=== PATIENT | male | born 1970 | race Caucasian/White ===

== ENCOUNTER 2021-08-11 10:39 | Emergency (ER) | payer SELFPAY ==
[2021-08-11 10:51] VITALS: BP 134/96; PULSE 82; RESP 18; TEMP 36.6; O2SAT 97; BMI 50.1
--- NOTE | 2021-08-11 11:09 | CT_ITS ---
WS: [id number] CT ABDOMEN AND PELVIS WITH CONTRAST HISTORY: bowel obstruction TECHNIQUE: Imaging performed of the abdomen and pelvis with IV contrast. Single phase imaging of the abdomen. Coronal and sagittal reformats are submitted. All CT scans at [facility] use at [address] one of these dose optimization techniques: automated exposure control; mA and/or kV adjustment per patient size (includes targeted exams where dose is matched to clinical indication); or iterative re construction. IV CONTRAST: Omnipaque 350; 95 mL IV. Oral contrast: No DLP: 2160.09 mGy.cm COMPARISON: None available. Lower thorax: Lung bases are clear. Heart is normal size. Small hiatal hernia. Liver/biliary system: Normal size with no intrahepatic dilatation. Gallbladder: Normal. No gallstones or wall thickening. No pericholecystic fluid. Pancreas: Normal size pancreas and pancreatic duct. No adjacent inflammation. Spleen: Granuloma. 10 mm cyst in the inferior spleen. Adrenal glands: Normal. Right kidney: Normal. Left kidney: Normal. Aorta: Normal. Lymphadenopathy: None. Free fluid: Small amount of fluid in the RIGHT lower quadrant along the paracolic gutter. GI tract: There is a long segment involvement of the distal small bowel and proximal colon with circu mferential wall thickening measuring up to 2.0 cm Marked narrowing of the lumen. There is a moderate amount of pericolonic inflammation. The appendix i s identified and does contain air. No free air is identified. No additional segments of colonic wall thickening. Abdominal wall: Unremarkable abdominal wall. No hernia. Pelvis: No free fluid or adenopathy within the pelvis. Bones: Unremarkable. CT/CT abdomen pelvis w con* [id number] IMPRESSION: 1. Long segment stricture and circumferential mucosal thickening involving the distal small bowel and the proximal colon. Contiguous involvement severe mucos al thickening. Moderate narrowing of the lumen. Suspect acute inflammatory rito l disease. 2. The appendix is identified and does contain air. 3. Moderate amount of pericolonic fat stranding in the RIGHT lower quadrant. N o perforation at this time.
--- NOTE | 2021-08-11 11:10 | ED_ITS ---
HPI - Abdominal Pain General: Chief Complaint: Abdominal Pain Stated Complaint: Constipation for 2 weeks Time Seen by Provider: 08/11/21 11:05 History of Present Illness: HPI narrative: 50-year-old male presents due to diffuse abdominal pain. States he has been constipated for 2 weeks. States that last small bowel movement was 4 days ago. Denies any abdominal surgeries. Describes crampy diffuse abdominal pain does not radiate. Denies nausea vomiting or diarrhea. Denies blood in stool prior to constipation. Denies any fevers or chills. Denies dysuria. Review of Systems Narrative: - CONSTITUTIONAL: Denies weight loss, fever and chills. - HEENT: Denies changes in vision and hearing. - RESPIRATORY: Denies SOB and cough. - CV: Denies palpitations and CP. - GI: As above - : Denies dysuria and urinary frequency. - MSK: Denies myalgia and joint pain. - SKIN: Denies rash and pruritus. - NEUROLOGICAL: Denies headache, weakness, numbness and syncope. - PSYCHIATRIC: Denies suicidal ideation Physical Exam Narrative: EXAM NARRATIVE: - GENERAL: Alert and oriented x 3. No acute distress. Well-nourished. - EYES: EOMI. Anicteric. - HENT: Atraumatic, no C-spine tenderness. Moist mucous membranes. No scleral icterus. No cervical lymphadenopathy. - LUNGS: Clear to auscultation bilaterally. No accessory muscle use. Equal lung sounds bilaterally. No respiratory distress. - CARDIOVASCULAR: Regular rate and rhythm. No murmur. No JVD. - ABDOMEN: Soft, mild diffuse tenderness, non-distended. Negative CVA tenderness bilaterally, no rebound or guarding, negative Dolan sign. No palpable masses. - EXTREMITIES: No edema. Non-tender. - SKIN: No rashes or lesions. Warm. - NEUROLOGIC: No meningismus or focal neurological deficits. CN II-XII grossly intact. - PSYCHIATRIC: Cooperative. Appropriate mood and affect. Course Vital Signs: Vital signs: Vital Signs Temperature 97.9 F 08/11/21 10:51 Pulse Rate 62 08/11/21 14:06 Respiratory Rate 16 08/11/21 14:06 Blood Pressure 167/92 08/11/21 14:06 Pulse Oximetry 96 08/11/21 14:06 MDM - Abdominal Pain MDM Narrative: Medical decision making narrative: 50-year-old male presents with constipation and abdominal pain. She is hemodynamically stable afebrile nontoxic-appearing. CT scan is concerning for inflammatory bowel disease. No signs of obstruction. Discussed with GI, Dr. Johnson, who at this time does not recommend hospitalization. Recommend stool softeners and Cipro Flagyl and outpatient follow-up. Referral provided. Otherwise lab work is unremarkable. At this time I believe patient would be safe for discharge and outpatient follow-up. Return precautions provided. Plan was reviewed with the patient who expressed understanding. Questions answered. Patient will follow up with GI and PCP. Patient discharged in stable condition. Lab Data: Labs: Lab Results 08/11/21 08/11/21 08/11/21 11:30 11:30 11:30 WBC 7.0 10^3/uL 10^3/ uL (4.0-10.0) RBC 4.90 10^6/uL 10^6 /uL (4.1-5.3) Hgb 15.6 g/dL g/dL (11.7-16.6) Hct 46.0 % % (42.0-52.0) MCV 93.9 fl fl (80-94) MCH 31.8 pg pg (28.0-34.0) MCHC 33.9 g/dL g/dL (30.0-36.0) RDW 13.7 % % (12.1-15.1) Plt Count 214 10^3/cmm 10^3 /cmm (130-400) MPV 9.7 fL fL (7.4-10.4) Neut % (Auto) 72.6 % % Lymph % (Auto) 16.8 % % Schleicher % (Auto) 6.4 % % Eos % (Auto) 3.3 % % Baso % (Auto) 0.6 % % Neut # (Auto) 5.12 10^3/uL 10^3 /uL (1.8-7.7) Lymph # (Auto) 1.2 10^3/uL 10^3/ uL (0.8-4.8) Schleicher # (Auto) 0.5 10^3/uL 10^3/ uL (0.2-0.9) Eos # (Auto) 0.2 10^3/uL 10^3/ uL (0.0-0.8) Baso # (Auto) 0.0 10^3/uL 10^3/ uL (0.0-0.1) Nucleated RBC % (a uto) 0 % % Nucleated RBCs # 0.0 /100WBC /100W BC Sodium 139 mmol/L mmol/L (136-145) Potassium 4.2 mmol/L mmol/L (3.5-5.1) Chloride 103 mmol/L mmol/L (98-107) Carbon Dioxide 21 mmol/L L mmol/ L (22-29) Anion Gap 19.2 H (5-19) BUN 7 mg/dL mg/dL (6-20) Creatinine 0.7 mg/dL mg/dL (0.7-1.2) GFR Calculation 119.4 mL/min mL/m in (90-130) Glucose 95 mg/dL mg/dL (65-115) Calculated Osmolal ity 286 mOsm/kg mOsm/ kg (285-295) Lactate 0.7 mmol/L mmol/L (0.5-2.2) Calcium 8.6 mg/dL mg/dL (8.5-10.5) Total Bilirubin 0.3 mg/dL mg/dL (0.15-1.2) AST 10 U/L U/L (0-40) ALT 15 U/L U/L (0-41) Alkaline Phosphata se 72 IU/L IU/L (40-130) Total Protein 5.8 g/dL L g/dL (6.6-8.7) Albumin 3.9 g/dL g/dL (3.5-5.2) Globulin 1.9 g/dL g/dL (1.3-4.6) Lipase 15 U/L U/L (13-60) Discharge Plan Discharge Patient Disposition: Home Clinical Impression: Abdominal pain, IBD (inflammatory bowel disease) Condition: Stable Prescriptions: New Flagyl 500 mg tablet 500 mg PO Q8H 7 Days Qty: 21 RF: 0 ciprofloxacin HCl 500 mg tablet 500 mg PO Q8H 7 Days Qty: 21 RF: 0 Senna with Docusate Sodium 8.6-50 mg tablet 1 tab-cap PO BID PRN (Reason: constipation) Qty: 10 RF: 0 Discharge Orders: Discharge ED (Routine); Ordered 08/11/21 Ordered By: Carlos Dempsey Referrals: Sloan Poe MD [Physician] - 1-3 days Patient Instructions: Abdominal Pain (ED), Opioid Safety Coding Level of Care Code ED Lace Paper Machine Operator for Gregory Tang
[2021-08-11] MEDS: acetaminophen 325 mg Tablet 650 MG PO (11:35)
[2021-08-11 11:42] LABS: Basophils % 0.6 %; Eosinophils # 0.2 10^3/uL (0.0-0.8); Eosinophils % 3.3 %; Hemoglobin 15.6 g/dL (11.7-16.6); Lymphocytes # 1.2 10^3/uL (0.8-4.8); Lymphocytes % 16.8 %; Mean Corpuscular HGB Conc 33.9 g/dL (30.0-36.0); Mean Corpuscular Hemoglobin 31.8 pg (28.0-34.0); Mean Corpuscular Volume 93.9 fl (80-94); Mean Platelet Volume 9.7 fL (7.4-10.4); Monocytes # 0.5 10^3/uL (0.2-0.9); Monocytes % 6.4 %; Neutrophils # 5.12 10^3/uL (1.8-7.7); Neutrophils % 72.6 %; Nucleated Red Blood Cells % 0 %; Platelet Count 214 10^3/cmm (130-400); Red Cell Distribution Width 13.7 % (12.1-15.1)
[2021-08-11 12:08] LABS: Lactate (Lactic Acid level) 0.7 mmol/L (0.5-2.2)
[2021-08-11 12:18] LABS: Alanine Aminotransferase 15 U/L (0-41); Albumin Level 3.9 g/dL (3.5-5.2); Alkaline Phosphatase 72 IU/L (40-130); Anion Gap 19.2 (5-19); Aspartate Amino Transferase 10 U/L (0-40); Blood Urea Nitrogen 7 mg/dL (6-20); Calcium 8.6 mg/dL (8.5-10.5); Carbon Dioxide 21 mmol/L (22-29); Chloride 103 mmol/L (98-107); Globulin 1.9 g/dL (1.3-4.6); Glomerular Filtration Rate 119.4 mL/min (90-130); Glucose 95 mg/dL (65-115); Lipase 15 U/L (13-60); Osmolality Calculated 286 mOsm/kg (285-295); Potassium 4.2 mmol/L (3.5-5.1); Sodium 139 mmol/L (136-145); Total Bilirubin 0.3 mg/dL (0.15-1.2); Total Protein 5.8 g/dL (6.6-8.7)
[2021-08-11] MEDS: iohexol 350 mg/mL 100 mL Btl IV (13:09)
[2021-08-11 14:06] VITALS: BP 167/92; PULSE 62; RESP 16; O2SAT 96
== END 2021-08-11 14:10 | disposition home or self-care (01) ==
PROVIDERS: Emergency Provider Emergency Medicine
DX: K58.1 Irritable bowel syndrome with constipation (principal); R10.9 Unspecified abdominal pain
CPT/HCPCS: 74177; 80053; 83605; 83690; 85025; 99283; Q9967

== ENCOUNTER 2022-05-12 09:01 | Emergency (ER) | payer OTHER, SELFPAY ==
[2022-05-12 09:08] VITALS: BP 177/121; PULSE 104; RESP 18; TEMP 36.6; O2SAT 97; BMI 50.1
[2022-05-12 09:11] VITALS: BP 146/93; PULSE 88; RESP 16; TEMP 36.2; O2SAT 93
--- NOTE | 2022-05-12 09:14 | XRR_ITS ---
PROCEDURE INFORMATION: Exam: XR Left Shoulder Exam date and time: 05/12/2022 9:27 AM Age: 51 years old Clinical indication: Injury or trauma; Fall; Blunt trauma (contusions or hematomas); Shoulder; Left TECHNIQUE: Imaging protocol: Radiologic exam of the Left shoulder. Views: 2 or more views. Total images: 487 COMPARISON: No relevant prior studies available. FINDINGS: Bones/joints: Normal. Soft tissues: Normal. XR/XR shoulder LT min 2V* [id number] IMPRESSION: No acute findings.
--- NOTE | 2022-05-12 09:18 | PC.NURSE ---
Patient here with c/o left shoulder pain and unable to move left arm without difficulty. Patient states he slipped on wet floor at grocery store yesterday. He adds that he has some pain to left flank.
--- NOTE | 2022-05-12 09:39 | ED_ITS ---
HPI - Extremity Problem General: Chief complaint: Extremity Injury, Upper Stated complaint: fall, left shoulder pain Time Seen by Provider: 05/12/22 09:18 Source: patient Mode of arrival: ambulatory Limitations: no limitations History of Present Illness: 51-year-old male presents emergency room with complaint of left shoulder pain. He fell yesterday try to catch himself twisted his shoulder as he went down he did not strike his head he now is consciousness is not have any other injuries. MD Complaint: joint pain Onset (ago): hour(s) Pain Consistency: constant Location: left Quality: aching Radiation: distal Relieving factors: nothing Exacerbating factors: nothing Associated symptoms: Deny chest pain, fever(s) or rash Review of Systems Const: Denies: fever(s), chills, body aches, change in appetite, fatigue or malaise ENMT: Denies: throat pain, ear or mastoid pain, nasal discharge or nasal congestion Card: Denies: chest pain, edema, dyspnea on exertion or orthopnea Resp: Denies: dyspnea, productive cough or non-productive cough GI: Denies: abdominal pain, nausea, vomiting, hematemesis, coffee ground emesis, diarrhea, constipation, bloating, hematochezia or melena : Denies: flank pain, dysuria, urinary frequency or urinary urgency Skin/Breast: Denies: rash or pruritus Physical Exam Const: COMMON NORMALS: no acute distress GENERAL APPEARANCE: cooperative and comfortable ORIENTATION/CONSCIOUSNESS: Yes awake, Yes oriented to person, Yes oriented to place and Yes oriented to time HENMT: COMMON NORMALS: normocephalic, atraumatic and hearing grossly normal bilaterally HEAD & SCALP: normocephalic and atraumatic Resp: COMMON NORMALS: normal respiratory effort, No retractions, No use of accessory muscles and clear to auscultation bilaterally AUSCULTATION: clear to auscultation bilaterally Cardio: COMMON NORMALS: regular rate, regular rhythm and No murmurs present (Cardio) RATE: regular rate RHYTHM: regular rhythm Extremity: COMMON NORMALS: capillary refill normal, no clubbing, cyanosis or edema, no calf tenderness and no pedal edema OTHER: No deformity or abnormality or difficulty with range of motion at the left hand wrist or elbow pain with internal and external rotation and abduction at the left shoulder. Neuro: SENSORIUM/ORIENTATION: Yes oriented to person, Yes oriented to place a nd Yes oriented to time Skin: COMMON NORMALS: no rashes or lesions noted GENERAL SKIN EXAM: no rashes or lesions noted Course Vital Signs: Vital signs: Vital Signs Temperature 97.2 F L 05/12/22 09:11 Pulse Rate 81 05/12/22 09:47 Respiratory Rate 18 05/12/22 09:47 Blood Pressure 136/84 05/12/22 09:47 Pulse Oximetry 91 05/12/22 09:47 Oxygen Delivery Me thod 05/12/22 09:47 MDM - Extremity (Nontraumatic) Medical Decision Making Plain film unremarkable. Discharge home. I offered patient referral to orthopedics but he declined he is from [place] he wants to follow-up with his primary care doctor when he returns. Given anti-inflammatories and sling not use the left arm until cleared by his physician or orthopedics. Medical Records I reviewed the patient's medical records. Lab Data I reviewed the patient's lab results. Radiology Impressions Shoulder X-Ray 05/12/22 09:14 IMPRESSION: No acute findings. Discharge Plan Discharge Patient Disposition: Home Clinical Impression: Sprain of left shoulder Condition: Stable Prescriptions: New diclofenac sodium 75 mg tablet,delayed release (DR/EC) 75 mg PO Q12H PRN (Reason: pain) Qty: 20 0RF Discharge Orders: Discharge ED (Routine); Ordered 05/12/22 Ordered By: Eugene Garcia Discharge Diet: Usual diet Discharge Activity: Increase activity as tolerated Patient Instructions: Opioid Safety Activity Restrictions/Additional Instructions: Wear the sling until you are released by your physician. We are not making arrangements for follow-up with Ortho since you requested to follow-up with your own doctor when you return home. Coding Level of Care Code ED Plater Hot Dip for Gregory Fwd Exam Detailed
[2022-05-12 09:47] VITALS: BP 136/84; PULSE 81; RESP 18; O2SAT 91
== END 2022-05-12 10:03 | disposition home or self-care (01) ==
PROVIDERS: Emergency Provider Family Medicine
DX: S43.402A Unspecified sprain of left shoulder joint, initial encounter (principal); W19.XXXA Unspecified fall, initial encounter
CPT/HCPCS: 73030; 99283